=== PATIENT | male | born 1995 | race American Indian/Alaskan Native ===

== ENCOUNTER 2019-02-04 22:46 | Emergency (ER) | payer OTHER ==
[2019-02-04] MEDS ORDERED: NACL 0.9% 1000 ML 1,000 ML IV ONE (22:50)
--- NOTE | 2019-02-04 22:55 | Emergency Department Report ---
ED Trauma HPI - General Stated Complaint: FELL OFF LADDER Time Seen by Provider: 02/04/19 22:49 Source: patient Exam Limitations: no limitations - History of Present Illness Initial Comments: Patient is 23 years old male with no significant past medical history. Patient brought to the emergency room after he sustained a fall from a ladder approximately 10 feet high. The patient stated that he was changing a lamp [employer]. Patient stated that he passed out briefly. Patient is complaining of headache, neck pain and lower back pain. Patient denied any weakness, numbness or tingling sensation. No bowel or bladder incontinence. Code trauma immediately initiated. Patient immediately put on cervical collar and spinal board. Occurred: just prior to arrival Severity: moderate Pain Location: head, neck, back Method of Injury: fall Loss of Consciousness: brief (seconds) Allergies/Adverse Reactions: Allergies No Known Allergies Allergy (Unverified 02/04/19 23:00) Home Medications: Ambulatory Orders No Known Home Medications [No Reported Home Medications] 02/04/19 ED Review of Systems ROS: Stated complaint: FELL OFF LADDER Other details as noted in HPI Comment: All other systems reviewed and negative Constitutional: denies: chills Respiratory: denies: cough, shortness of breath, SOB with exertion Cardiovascular: denies: chest pain, palpitations Gastrointestinal: denies: abdominal pain, nausea, vomiting, diarrhea, constipation, hematemesis, melena, hematochezia Musculoskeletal: back pain Neurological: headache ED Past Medical Hx - Medications Home Medications: Home Medications Medication Instructions Recorded Confirmed Last Taken Type No Known Home Medications [No 02/04/19 02/04/19 Unknown History Reported Home Medications] ED Physical Exam - General General appearance: alert, in no apparent distress - Head Head exam: Present: atraumatic, normocephalic, normal inspection - Eye Eye exam: Present: normal appearance, PERRL - ENT ENT exam: Present: normal exam, normal orophraynx, mucous membranes moist - Neck Neck exam: Present: normal inspection. Absent: tenderness, meningismus, full ROM, lymphadenopathy, thyromegaly - Respiratory Respiratory exam: Present: normal lung sounds bilaterally - Cardiovascular Cardiovascular Exam: Present: regular rate, normal rhythm, normal heart sounds - GI/Abdominal GI/Abdominal exam: Present: soft, normal bowel sounds. Absent: distended, tenderness, guarding, rebound, rigid, organomegaly, mass, bruit, pulsatile mass, hernia - Extremities Exam Extremities exam: Present: normal inspection, full ROM, normal capillary refill - Back Exam Back exam: Present: normal inspection, full ROM - Neurological Exam Neurological exam: Present: alert, oriented X3, CN II-XII intact - Skin Skin exam: Present: warm, intact, normal color ED Course Vital Signs 02/04/19 02/04/19 02/04/19 22:45 22:51 23:00 Temperature 98.1 F Pulse Rate 75 81 58 L Respiratory 15 19 20 Rate Blood Pressure 158/83 158/83 O2 Sat by Pulse 100 99 Oximetry 02/04/19 02/04/19 02/04/19 23:19 23:30 23:45 Temperature Pulse Rate 60 Respiratory 13 14 11 L Rate Blood Pressure 131/83 129/77 131/77 O2 Sat by Pulse 99 100 Oximetry 02/04/19 23:49 Temperature Pulse Rate Respiratory 18 Rate Blood Pressure O2 Sat by Pulse 99 Oximetry ED Medical Decision Making - Lab Data Result diagrams: 02/04/19 23:03 02/04/19 23:03 - Radiology Data Radiology results: report reviewed CT brain is negative for acute finding CT cervical spine is negative for acute finding CT lumbar spine is negative for acute finding. - Medical Decision Making Patient is 23 years old male with no significant past medical history. Patient brought to the emergency room after he sustained a fall from a ladder approximately 10 feet high. The patient stated that he was changing a lamp [employer]. Patient stated that he passed out briefly. Patient is complaining of headache, neck pain and lower back pain. Patient denied any weakness, numbness or tingling sensation. No bowel or bladder incontinence. Code trauma immediately initiated. Patient immediately put on cervical collar and spinal board. Patient primarily as secondary survey is negative. Patient CT brain, CT cervical spine and CT lumbar spine is negative for acute finding. Patient is ambulating well was no difficulty. Patient will be discharged home to follow up with his primary care physician and advised to return to the ER if symptoms are not improved Or if the patient develop new symptoms. Critical Care Time: Yes Critical care time in (mins) excluding proc time.: 30 Critical care attestation.: If time is entered above; I have spent that time in minutes in the direct care of this critically ill patient, excluding procedure time. ED Disposition Clinical Impression: Trauma, Fall, Head injury, Lower back injury Disposition: TO HOME OR SELFCARE Is pt being admited?: No Condition: Stable Instructions: Fall Prevention for Older Adults (ED), Cervical Sprain (ED), Minor Head Injury (ED) Referrals: [facility] [Provider Group] - 3-5 Days
[2019-02-04 23:16] LABS: Basophils % (Auto) 0.6 % (0.0-1.8); Eosinophils # (Auto) 0.2 K/mm3 (0.0-0.4); Eosinophils % (Auto) 3.8 % (0.0-4.3); Hematocrit 42.1 % (35.5-45.6); Hemoglobin 13.9 gm/dl (11.8-15.2); Lymphocytes # (Auto) 2.2 K/mm3 (1.2-5.4); Lymphocytes % (Auto) 38.2 % (13.4-35.0); Mean Corpuscular HGB Conc 33 % (32-34); Mean Corpuscular Volume 84 fl (84-94); Monocytes # (Auto) 0.5 K/mm3 (0.0-0.8); Monocytes % (Auto) 8.8 % (0.0-7.3); Platelet Count 231 K/mm3 (140-440); Red Blood Count 5.01 M/mm3 (3.65-5.03)
[2019-02-04 23:27] LABS: INR 0.94 (0.87-1.13)
[2019-02-04 23:29] LABS: BUN/Creatinine Ratio 14; Blood Urea Nitrogen 17 mg/dL (9-20); Calcium 9.4 mg/dL (8.4-10.2); Hemolysis Index 35
[2019-02-04 23:32] LABS: Partial Thromboplastin Time 26.9 Sec. (24.2-36.6)
--- NOTE | 2019-02-04 23:37 | Cat Scan Report ---
PROCEDURE: CT LUMBAR SPINE WO CON TECHNIQUE: Computerized axial tomography of the lumbar spine was performed from T12 to the sacrum wi thout contrast material. CT DOSE LENGTH PRODUCT: 767.7 mGycm HISTORY: Back pain Trauma COMPARISONS: None . FINDINGS: The alignment is normal. The heights of the vertebral segments and the disc spaces are maintained. No acute fracture or dislocation of the lumbar spine. L1-2: No significant abnormality . L2-3: No significant abnormality . L3-4: No significant abnormality . L4-5: No significant abnormality . L5-S1: No significant abnormality . Other: None . IMPRESSION: Normal CT lumbar spine . This document is electronically signed by Joy Lazo DO., February 04 2019 11:35:34 PM ET
--- NOTE | 2019-02-04 23:44 | Cat Scan Report ---
PROCEDURE: CT HEAD/BRAIN WO CON TECHNIQUE: Axial helical imaging from the skull base to the vertex. HISTORY: Trauma COMPARISONS: None FINDINGS: There is no evidence of an acute intracranial process, intracranial hemorrhage or mass effect. The ventricles are normal size. The visualized portions of the orbits, paranasal and mastoid sinuses are unremarkable. There is no evidence of fracture. IMPRESSION: 1. No evidence of an acute intracranial process, intracranial hemorrhage or mass effect. 2. No evidence of fracture. This document is electronically signed by Joanna Maldonado MD., February 04 2019 11:41:58 PM ET
--- NOTE | 2019-02-04 23:49 | Cat Scan Report ---
PROCEDURE: CT CERVICAL SPINE WO CON TECHNIQUE: Computerized tomography of the cervical spine was performed from the skull base to T1 wit hout contrast material. CT DOSE LENGTH PRODUCT: 605.8 mGycm HISTORY: Trauma COMPARISONS: None . FINDINGS: There is loss of cervical lordosis. Vertebral height is normal. C1-2: No significant abnormality . C2-3: No significant abnormality . C3-4: No significant abnormality . C4-5: No significant abnormality . C5-6: No significant abnormality . C6-7: No significant abnormality . C7-T1: No significant abnormality . Fractures: None . Other: No additional findings . IMPRESSION: Straightening of the cervical spine is most likely secondary to spasm or positioning. No acute abnormality.. . This document is electronically signed by Ronnell Sal MD., February 04 2019 11:46:42 PM ET
[2019-02-05] MEDS ORDERED: TORADOL ONE
[2019-02-05] MEDS ORDERED: TORADOL IV ONE (00:03)
[2019-02-05 01:07] VITALS: BP 126/70
== END 2019-02-05 01:09 | disposition home or self-care (01) ==
LOC: ED 22:46
DX: S09.90XA Unspecified injury of head, initial encounter (principal); S39.92XA Unspecified injury of lower back, initial encounter; W11.XXXA Fall on and from ladder, initial encounter; Y93.89 Activity, other specified; Y92.219 Unspecified school as the place of occurrence of the external cause; Y99.8 Other external cause status
CPT/HCPCS: 36415; 70450; 72125; 72131; 80048; 85025; 85610; 85730; 96361; 96374; 99284; J1885; J7030